=== PATIENT | male | born 2000 | race Caucasian/White ===

== ENCOUNTER 2020-07-06 13:45 | Emergency (ER) | payer OTHER, SELFPAY ==
--- NOTE | ~2020-07-06 | XR_ITS ---
EXAMINATION: XR knee LT 3V DATE: 07/06/2020 14:28 INDICATION: Left knee pain TECHNIQUE: Three views of the left knee were obtained. COMPARISON: None. FINDINGS: Alignment is normal. No fracture or osteochondral lesion. Joint spaces are normal with no e rosions. There is a tiny knee joint effusion. Soft tissues are unremarkable. IMPRESSION: 1. Small joint effusion without acute osseous abnormality. Reviewed, dictated and finalized at location A.
[2020-07-06 13:47] VITALS: BP 126/108; PULSE 90; RESP 20; TEMP 35.9; O2SAT 99
[2020-07-06] MEDS: IBUPROFEN 600 MG TABLET PO (14:24)
--- NOTE | 2020-07-06 14:55 | ED.GENADULT ---
HPI - General Adult General Chief complaint: Extremity Injury, Lower Stated complaint: left knee pain Time Seen by Provider: 07/06/20 14:04 Source: patient Mode of arrival: ambulatory Limitations: no limitations History of Present Illness HPI narrative: Patient is a 19-year-old male who presents to emergency department for evaluation of left knee pain was playing basketball dislocated his patella was placed back by the adaptive physical educator patient presents with use and crutches patient notes moderate aching pain worse with activity and movement Related Data Home Medications Medication Instructions Recorded Confirmed No Home Medications 07/06/20 Allergies Allergy/AdvReac Type Severity Reaction Status Date / Time steroids Allergy Hives Uncoded 07/06/20 13:51 Review of Systems Review of Systems: All systems reviewed & are unremarkable except as noted in HPI and below PMFSH Social History Social History (Updated 07/06/20 @ 14:57 by Walter Huertas PA-C) Smoking status: Never smoker Exam Narrative: Exam Narrative: GENERAL: Well-appearing, well-nourished, and in no acute distress. HEAD: Normocephalic, atraumatic. EYES: PERRLA and EOMI. ENT: Nares clear, no rhinorrhea or epistaxis. Mucous membranes moist. EXTREMITIES: Normal range of motion. No edema. Tenderness of the anterior left knee minimal swelling no other deformities noted SKIN: Warm, dry, no rash. NEURO: No focal deficits. Alert and oriented x3. Neurovascularly intact. Capillary refill less than 2-second PSYCH: Normal mood and affect. Course Course Emergency Course: Patient in the room in no distress aware of case findings treatment plan and diagnosis agreeing to follow-up as directed Vital Signs Vital signs: Vital Signs Temperature 96.7 F L 07/06/20 13:47 Pulse Rate 90 07/06/20 13:47 Respiratory Rate 20 07/06/20 13:47 Blood Pressure 126/108 H 07/06/20 13:47 Pulse Oximetry 99 07/06/20 13:47 Temperature 96.7 F L 07/06/20 13:47 Pulse Rate 90 07/06/20 13:47 Respiratory Rate 20 07/06/20 13:47 Blood Pressure 126/108 H 07/06/20 13:47 Pulse Oximetry 99 07/06/20 13:47 Medical Decision Making MDM Narrative Medical decision making narrative: Patients injury or pain is consistent with musculoskeletal etiology. No signs of neurological or vascular compromise on exam. Compartments and tisues are soft without signs of compartment syndrome. Pain is felt appropriate for further evaluation on an outpatient basis. Patient placed in Dmitry wrap and knee immobilizer given orthopedic referral Vital Signs Vital Signs: Vital Signs Temperature 96.7 F L 07/06/20 13:47 Pulse Rate 90 07/06/20 13:47 Respiratory Rate 20 07/06/20 13:47 Blood Pressure 126/108 H 07/06/20 13:47 Pulse Oximetry 99 07/06/20 13:47 Temperature 96.7 F L 07/06/20 13:47 Pulse Rate 90 07/06/20 13:47 Respiratory Rate 20 07/06/20 13:47 Blood Pressure 126/108 H 07/06/20 13:47 Pulse Oximetry 99 07/06/20 13:47 Discharge Plan Discharge Clinical Impression: Closed dislocation of patella Patient Disposition: Home, Self-Care Condition: Stable Instructions: Antibiotic Form, Patellar Dislocation (ED) Additional Instructions: Wear brace and use crutches. No weight on the affected leg until able to bear weight without pain. Ice and elevate extremity. Pain medication as needed and directed. Follow-up with orthopedic surgeon in the next 7 days for reevaluation please. Return if symptoms worsen or concerns. Prescriptions: New ibuprofen [IBU] 600 mg tablet 600 mg PO QID PRN (Reason: fever or pain) Qty: 7 RF: 0 No Action No Home Medications RF: 0 Follow-up/Referrals: PHYSICIAN,ACADEMIC COUNSELOR [Primary Care Provider] - Clayton Ramos MD [Physician] - Stand Alone Forms: Work/School Release IP
[2020-07-06 15:38] VITALS: BP 114/88; PULSE 85; RESP 16; O2SAT 99
== END 2020-07-06 15:35 | disposition home or self-care (01) ==
PROVIDERS: Emergency Provider Emergency Medicine
DX: S83.005A Unspecified dislocation of left patella, initial encounter (principal); X58.XXXA Exposure to other specified factors, initial encounter
CPT/HCPCS: 73562; 99283; A9270